=== PATIENT | female | born 1990 | race Two or more races ===

== ENCOUNTER → 2018-06-18 | Outpatient (CLI) | payer OTHER ==
[2016-02-25 18:22] VITALS: BP 137/86
[~2018-06-18] MED LIST: BACI3.5O8 OD; HYDR-2761 PO
--- NOTE | 2018-06-18 13:45 | KCIC ---
EXAM: Left hand, 3 views. HISTORY: Pain. COMPARISON: None. FINDINGS: 3 views left hand are obtained. There is no fracture, dislocation or subluxation. IMPRESSION: No acute osseous finding. Electronically signed by: Ruthie Blanco MD (06/18/2018 1:43 PM) [id number]
== END | disposition home or self-care (01) ==
LOC: KCIC 12:39
PROVIDERS: ATTEND Nurse Practitioner Family
DX: M79.642 Pain in left hand (principal)
CPT/HCPCS: 73130